=== PATIENT | female | born 1990 | race Caucasian/White ===

== ENCOUNTER 2019-11-14 18:40 | Emergency (ER) | payer BC ==
[~2019-11-14] VITALS: Ht 167.6 cm; Wt 99.8 kg
[2019-11-14 20:47] VITALS: BP 120/68
== END 2019-11-14 20:47 | disposition home or self-care (01) ==
LOC: M.ERS 18:40
DX: S61.210A Laceration without foreign body of right index finger without damage to nail, initial encounter (principal); W26.8XXA Contact with other sharp object(s), not elsewhere classified, initial encounter; Y93.89 Activity, other specified; Y92.89 Other specified places as the place of occurrence of the external cause; Y99.8 Other external cause status